=== PATIENT | male | born 1965 | race Caucasian/White ===

== ENCOUNTER 2018-01-21 16:17 | Emergency (ER) | payer OTHER ==
[2018-01-21] MEDS: IBUPROFEN 800 MG TABLET. PO (18:14)
== END 2018-01-21 18:50 | disposition home or self-care (01) ==
LOC: ER 16:17
DX: S09.90XA Unspecified injury of head, initial encounter (principal); M48.02 Spinal stenosis, cervical region; E11.9 Type 2 diabetes mellitus without complications; V43.42XA Person boarding or alighting a car injured in collision with other type car, initial encounter; Y93.89 Activity, other specified; Y99.8 Other external cause status; Y92.488 Other paved roadways as the place of occurrence of the external cause
CPT/HCPCS: 70450; 72125; 99284-25

== ENCOUNTER → 2018-07-16 | Outpatient (CLI) | payer OTHER ==
[2018-01-21 18:00] VITALS: BP 157/81
[~2018-07-16] MED LIST: ALBUTEROL SULFATE 2.5 MG/3 ML NEBU. NEB ONE
== END | disposition home or self-care (01) ==
LOC: PF 10:02
PROVIDERS: ATTEND Radiology Therapeutic Radiology
DX: J44.9 Chronic obstructive pulmonary disease, unspecified (principal)
CPT/HCPCS: 94060; 94640; J7613

== ENCOUNTER → 2020-04-22 | Outpatient (CLI) | payer OTHER ==
[2018-01-21 18:00] VITALS: BP 157/81
[~2020-04-22] MED LIST changes: -ALBUTEROL SULFATE 2.5 MG/3 ML NEBU. NEB ONE; +AMLO5TAB10 PO; +HYDR-2765 PO; +HYDR50TA6 PO; +INSU100V13 SQ; +LISI-130 PO; +LISI10TA2 PO; +METF500T16 PO
--- NOTE | 2020-04-22 11:00 | PDOC2 ---
INITIAL PAIN CONSULT DATE OF SERVICE: DOS: DATE: 04/22/20 TIME: 10:51 CHIEF COMPLAINT: Chief Complaint: Low back and right lower extremity pain HISTORY OF PRESENT ILLNESS: D5-year-old male presents history of pain low back into the right foot for about 2-1/2 years now patient reports no specific injury or accident he is aware but he was wrestling with his brother after an event and hurt his back about 2 and h yue years ago is had pain ever since on and off in intensity getting worse over the past few months patient ports also radiating into his right lower extremity but mostly feels the pain in his right medial and anterior aspect of the right foot. Patient has seen a asset management coordinator who examined his foot and by his report was told there was nothing wrong with it and that he had probably a sciatic pain involved. He does have a history of degenerative disc disease in the lumbar spine as well. Patient reports the pain is constant and aching in the low back more on the right side than the left again with pain in the right foot as well patient reports he does not awaken from sleep at night does not affect his bowel bladder control but does affect his body walk for more than 10 to 15 minutes also riding the car for more than about 30 to 40 minutes exacerbates the pain fairly significantly in the right foot and the low back itself. Patient has had no diagnostic studies at this time has had no other treatments he doing some stretching and strength exercises on his own and does workout on his own at home as well as tries to walk every day at least half a mile but is becoming more more difficult for him. He rates his disability of 0-10 10 being the worst is an 8 in all categories family home responsibilities recreation occupation social activity self-care life support activities. PAST MEDICAL HISTORY: PMH: Type 2 diabetes, COPD, cigarette smoking, hypertension, obesity PREVIOUS SURGERIES: Past Surgical Hx: ORIF right upper extremity,rt. rotator cuff repair, left rotator cuff repair ear tubes, tonsillectomy CURRENT MEDICATIONS: Current Meds: Active Scripts Medications Dose Route/Sig Max Daily Dose Days Date Category Lisinopril 40 Mg Tablet 1 Tab PO DAILY 04/22/20 Reported Levemir (Insulin Detemir) 100 Unit/1 Ml Vial 1 Unit SQ HS 04/22/20 Reported Hydrocodone-Apap 7.5-325 (Hydrocodone Bit/Acetaminophen) 1 Tab Tablet 1 Tab PO PRN Q6HRS PRN 04/22/20 Reported Hydrochlorothiazide Tablet (Hydrochlorothiazide) 50 Mg Tablet 50 Mg PO DAILY 04/22/20 Reported Amlodipine Besylate 5 Mg Tablet 5 Mg PO DAILY 04/22/20 Reported Metformin Hcl 500 Mg Tablet 500 Mg PO DAILY 04/22/20 Reported ALLERGIES; Allergies: Coded Allergies: No Known Allergies (Verified Allergy, Unknown, 07/16/18) FAMILY HISTORY: Family Hx: No major medical conditions that he lists SOCIAL HISTORY: Social Hx: Smokes about 2 packs a day or less has for 38 years does not drink alcohol does not use any illegal illicit recreational drugs 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 Extraocular movements are intact and symmetrical. Oral cavity: Mucous membranes moist and pink. Dentition is intact. NECK: Shows anterior throat supple without palpable lymphadenopathy noted. Swallow reflex symmetrical. CHEST: Shows normal on inspection. Breath sounds are clear bilaterally, distant, but no rales rhonchi or wheezes auscultated. HEART: Shows S1, S2 clear. No murmurs auscultated. ABDOMEN: Soft, nontender, nondistended, obese. No palpable organomegaly is noted. No rebound or guarding demonstrated. BACK: Shows spine grossly in the midline. Normal-appearing cervical lordotic curvature. There is slightly increased thoracic kyphosis, some minor flattening of the lumbar lordotic curvature. Lumbar paraspinous muscles show symmetrical on inspection, on palpation shows some moderate tenderness diffusely throughout the upper, middle and lower distribution of the paraspinous muscles bilaterally and also into the lower thoracic paraspinous musculature, firm and tender, but without specific trigger points, without radiation of pain. The patient has good rotational motion of the lumbar spine, both laterally as well as extension and flexion without significant difficulty. No tenderness over the spinous processes, but moderate tenderness over the right sacroiliac and posterior superior iliac spine only without radiation. EXTREMITIES: Lower extremities show deep tendon reflexes 2+ in the patellar and tendo calcaneus tendons. Motor exam is 4 on a scale of 5 with right dorsiflexion, extension, quadriceps and hamstring flexion and 5/5 on the left. Peripheral pulses are 1+ posterior tibial. No peripheral edema is noted bilaterally. Lower extremities are warm and dry to touch, equal in color and appearance. Straight leg raise noted to be positive on the right about 40 degrees, left side is []. Gaenslen's and Enrique's maneuvers are negative as well. The patient is able to stand, stand on his toes without significant difficulty or loss of balance walks with a slight favoring gait does appear to favor the right lower extremity mildly but not use any assistive device such as canes or walker to ambulate.. SKIN: Shows warm and dry, good turgor. No edema. No sores, rashes or bruising throughout. IMPRESSION: Impression: 55-year-old male with approximate 2-1/2-year history low back pain now right lower extremity pain and specifically right foot pain in a radicular fashion. Obesity Type 2 diabetes Hypertension Cigarette smoking with COPD Plan: Options were discussed with the patient including conservative medical management physical therapies interventional techniques and he like to pursue interventional techniques. We discussed a lumbar epidural straight injection using description as well as anatomical models to describe the procedure. Patient will wait for preauthorization with his insurance provider in the meantime in order MRI scan of the lumbar spine as has significant radicular pain and no diagnostic studies to confirm this also patient reports he has a history of a spinal tumor in his sister which was malignant. Once MRI scan is obtained we will review this and plan on lumbar epidural steroid ejection translaminar approach to the L5-S1 level. In the meantime patient given Medrol Dosepak with instructions and side effects be aware of discussed, and will return as scheduled SOFI KELLY MD Apr 22, 2020 11:00
== END | disposition home or self-care (01) ==
LOC: PNCL 08:58
PROVIDERS: ATTEND Anesthesiology
DX: M54.5 Low back pain (principal); M51.36 Other intervertebral disc degeneration, lumbar region; M79.661 Pain in right lower leg; I10 Essential (primary) hypertension; J44.9 Chronic obstructive pulmonary disease, unspecified; E11.9 Type 2 diabetes mellitus without complications; Z87.891 Personal history of nicotine dependence; Z79.899 Other long term (current) drug therapy
CPT/HCPCS: G0463

== ENCOUNTER → 2020-09-30 | Outpatient (CLI) | payer OTHER ==
[2018-01-21 18:00] VITALS: BP 157/81
[~2020-09-30] MED LIST changes: +AMLO-186 PO; -AMLO5TAB10 PO; +ASPI-630 PO; +CLON0.2T PO; -HYDR50TA6 PO; +HYDR50TA9 PO; +IOHEXOL 180 MG/ML 10 ML VIAL. ONE; +IRBE300T23 PO; +LISI10TA16 PO; -LISI10TA2 PO; +methylPREDNISolone ACETATE 40 MG/ML VIAL. ONE; +methylPREDNISolone ACETATE 80 MG/ML VIAL. ONE
--- NOTE | 2020-09-30 11:39 | PDOC4 ---
PROCEDURE Procedure Patient was consented for lumbar epidural steroid injection. Risks were dis cussed including but not limited to: Bleeding, infection, possibility of epidural hematoma and subsequent neurological compromise, dural puncture, headaches, spinal cord and/or nerve damage, side effects of steroid medication, and poor results regarding pain control. Patient understands and wished to proceed. Procedure is lumbar epidural steroid injection under local anesthetic using sterile prep and drape at the L5-S1 level using C-arm fluoroscopic guidance in both AP and lateral views medications injected is 120 mg Depo-Medrol + 10 mL preservative-free normal saline and 2 mL contrast- condition at discharge is stable patient tolerated procedure well had no complications. SOFI KELLY MD Sep 30, 2020 11:39
--- NOTE | 2020-09-30 11:39 | PDOC ---
Progress Note - Pain Clinic Date of Service: DOS: DATE: 09/30/20 TIME: 11:35 Diagnosis: Dx: Lumbar radiculopathy with lumbar degenerative disc disease History or Present Illness: HPI: 55-year-old male returns for follow-up status post initial evaluation and preauthorization for lumbar epidural steroid injection. Patient is obtained that now would like to proceed. Patient reports still pain the low back right lower extremity as was previously posterior gluteus posterior thigh posterior calf on the right side into the foot on the right as well patient reports is a 9 on scale 10 is worse over the past week 8 on average 7 its least and is a 7 today patient ports radiating and sharp in the back also in the right hip and lower extremity patient reports no new motor or sensory deficits no new bowel or bladder incontinence reports is still awakening from sleep occasionally but not every night patient reports no other changes. Physical Exam: VS: Blood pressure 157/91 pulse 85 respirations 18 temperature is 98.1 F weight is 277 pounds PE: PHYSICAL EXAMINATION: GENERAL: The patient is awake, alert, oriented, appropriate, very pleasant demeanor HEENT: Shows normocephalic, atraumatic. Extraocular movements are intact and symmetrical. Oral cavity: Mucous membranes moist and pink. NECK: Shows anterior throat supple without palpable lymphadenopathy noted. Swallow reflex symmetrical. CHEST: Shows normal on inspection. Breath sounds are clear bilaterally, distant but no rales or rhonchi. Deep breath elicits dry cough. HEART: Shows S1, S2 clear. No murmurs auscultated. ABDOMEN: Soft, nontender, nondistended, obese. No palpable organomegaly is noted. No rebound or guarding demonstrated. BACK: Shows spine grossly in the midline. Normal-appearing cervical lordotic curvature. There is increased thoracic kyphosis, some flattening of the lumbar lordotic curvature. Lumbar paraspinous muscles show symmetrical on inspection, on palpation shows some moderate tenderness diffusely throughout the upper, middle and lower distribution of the paraspinous muscles without specific trigger points, without radiation of pain. The patient has good rotational motion of the lumbar spine, both laterally as well as extension and flexion without significant difficulty. EXTREMITIES: Lower extremities show deep tendon reflexes 2+ in the patellar and tendo calcaneus tendons. Motor exam is 4 on a scale of 5 with right dorsiflexion, extension, quadriceps and hamstring flexion and 5/5 on the left. Peripheral pulses are 1+ posterior tibial. No peripheral edema is noted bilaterally. Lower extremities are warm and dry to touch, equal in color and appearance. SKIN: Shows warm and dry, good turgor. No edema. No sores, rashes or bruising throughout. Procedure: Procedure: Options were discussed with the patient. Patient chart reviews his current medi cation regimen updated current review of systems updated today as well. We will proceed with lumbar epidural steroid injection today with fluoroscopic guidance. Risks were discussed including but not limited to: Bleeding, infection, possibility of epidural hematoma and subsequent neurological compromise, dural puncture, headaches, spinal cord and/or nerve damage, side effects of steroid medication, and poor results regarding pain control. Patient understands and wished to proceed. Patient will return to clinic in approximate 2 weeks for follow-up, was counseled as to return appointment activity level and side effects to be aware of. Medication Injected: Med Injected: Procedure is lumbar epidural steroid injection under local anesthetic using sterile prep and drape at the L5-S1 level using C-arm fluoroscopic guidance in both AP and lateral views medications injected is 120 mg Depo-Medrol + 10 mL preservative-free normal saline and 2 mL contrast- condition at discharge is st able patient tolerated procedure well had no complications. Condition at Discharge: Condition at Discharge: Condition discharge stable, patient alert procedure well, and had no complications. SOFI KELLY MD Sep 30, 2020 11:39
== END | disposition home or self-care (01) ==
LOC: PNCL 10:42
PROVIDERS: ATTEND Anesthesiology
DX: M51.16 Intervertebral disc disorders with radiculopathy, lumbar region (principal); F17.210 Nicotine dependence, cigarettes, uncomplicated; Z79.82 Long term (current) use of aspirin; Z79.84 Long term (current) use of oral hypoglycemic drugs; Z79.899 Other long term (current) drug therapy; Z72.89 Other problems related to lifestyle
CPT/HCPCS: 62323; J1030; J1040; Q9965

== ENCOUNTER → 2020-10-14 | Outpatient (CLI) | payer OTHER ==
[2018-01-21 18:00] VITALS: BP 157/81
[~2020-10-14] MED LIST changes: -IOHEXOL 180 MG/ML 10 ML VIAL. ONE; -methylPREDNISolone ACETATE 40 MG/ML VIAL. ONE; -methylPREDNISolone ACETATE 80 MG/ML VIAL. ONE
--- NOTE | 2020-10-14 11:19 | PDOC ---
Progress Note - Pain Clinic Date of Service: DOS: DATE: 10/14/20 TIME: 11:15 Diagnosis: Dx: Lumbar radiculopathy with lumbar degenerative disc disease History or Present Illness: HPI: 55-year-old male returns follow-up status post lumbar epidural to injection x1. Patient reports about 50% improvement after the first week or so after the injection the pain significantly reduced by about 75 to 80% for the first 3 days and pain returning in the low back and the right lower extremity. Patient reports in the right hip posterior gluteus posterior lateral thigh lateral anterior thigh and on the top of the foot with a stabbing pain on the top of the right foot over the past few days. Patient reports no new motor or sensory deficits no new bowel or bladder incontinence describes pain as aching and sharp in the low back and the right leg as noted worse with walking and standing better with sitting or laying down still wakes him from sleep occasionally but not every night patient reports initially he was doing better with working ac tivities household activities but after about 3 days of working again the pain returned. Patient rates his pain is a 9 on scale 10 is worse with past week 8 on average 8 its least is an 8 today. Patient reports no new motor or sensory deficits, no new bowel or bladder incontinence, or other complaints. Physical Exam: VS: Blood pressure is 140/97 ;pulse 81; respirations 20; temperature is 90.4 F; height is 5 feet 8 inches; weight is 277 pounds PE: PHYSICAL EXAMINATION: GENERAL: The patient is awake, alert, oriented, appropriate, very pleasant demeanor HEENT: Shows normocephalic, atraumatic. Extraocular movements are intact and symmetrical. NECK: Shows anterior throat supple without palpable lymphadenopathy noted. Swallow reflex symmetrical. CHEST: Shows normal on inspection. Breath sounds are clear bilaterally, no rales or rhonchi auscultated bilaterally. HEART: Shows S1, S2 clear and regular. No murmurs auscultated. ABDOMEN: Soft, nontender, nondistended, obese. No palpable organomegaly is noted. No rebound or guarding demonstrated. BACK: Shows spine grossly in the midline. Normal-appearing cervical lordotic curvature. There is slightly increased thoracic kyphosis, some flattening of the lumbar lordotic curvature. Lumbar paraspinous muscles show symmetrical on inspection, on palpation shows some moderate tenderness diffusely throughout the upper, middle and lower distribution of the paraspinous muscles without specific trigger points, without radiation of pain. The patient has good rotational motion of the lumbar spine, both laterally as well as extension and flexion without significant difficulty. EXTREMITIES: Lower extremities show deep tendon reflexes 2+ in the patellar and tendo calcaneus tendons. Motor exam is 4 on a scale of 5 with right dorsiflexion, extension, quadriceps and hamstring flexion and 5/5 on the left. Peripheral pulses are 1+ posterior tibial. No peripheral edema is noted bilaterally. Lower extremities are warm and dry to touch, equal in color and appearance. SKIN: Shows warm and dry, good turgor. No edema. No sores, rashes or bruising throughout. Procedure: Procedure: Options were discussed with the patient. Patient chart reviews his current medication regimen updated current review of systems updated today as well. Patient has significant [id number] expense with his insurance program and would like to wait for another week or 2 prior to undergoing another injection. Patient will be given Medrol Dosepak in the meantime patient is given instructions well side effects beware with the medication, and will follow up in approximately 2 weeks as scheduled. In the meantime patient will continue with stretching strength exercises as well as [id number] analgesics and hydrocodone as currently. Medication Injected: Med Injected: None Condition at Discharge: Condition at Discharge: Condition at discharge is stable. SOFI KELLY MD Oct 14, 2020 11:19
== END | disposition home or self-care (01) ==
LOC: PNCL 10:38
PROVIDERS: ATTEND Anesthesiology
DX: M51.16 Intervertebral disc disorders with radiculopathy, lumbar region (principal); F17.210 Nicotine dependence, cigarettes, uncomplicated; Z79.82 Long term (current) use of aspirin; Z79.84 Long term (current) use of oral hypoglycemic drugs; Z79.899 Other long term (current) drug therapy; Z72.89 Other problems related to lifestyle
CPT/HCPCS: 99212; G0463

== ENCOUNTER → 2020-11-11 | Outpatient (CLI) | payer OTHER ==
[2018-01-21 18:00] VITALS: BP 157/81
[~2020-11-11] MED LIST changes: +IOHEXOL 180 MG/ML 10 ML VIAL. ONE; +methylPREDNISolone ACETATE 40 MG/ML VIAL. ONE; +methylPREDNISolone ACETATE 80 MG/ML VIAL. ONE
--- NOTE | 2020-11-11 12:14 | PDOC ---
Progress Note - Pain Clinic Date of Service: DOS: DATE: 11/11/20 TIME: 12:10 Diagnosis: Dx: Lumbar radiculopathy with lumbar degenerative disc disease History or Present Illness: HPI: 55-year-old male returns follow-up status post lumbar epidurals injection x1. September 30, 2020. Patient reports he did about 50% improvement after the last injection which is now improved to about 75% improvement patient reports he took about 3 to 4 days to get that level after the injection but is now about 75% improved and is still improved patient reports that his low back and right lower extremity greater than the left. Patient reports it is constant severe at times aching and sharp in the low back and the right lower extremity posterior gluteus posterior thigh posterior calf but more in the hip and the right side patient reports is a 9 on scale 10 is worse over the past week 9 on average 6 its least and is a 9 today patient reports no new motor or sensory deficits no new bowel or bladder incontinence or other complaints he is initially walking better doing activities at home as well as at work with greater ease and comfort and walking steps feels much better as well. Patient reports still waking from sleep occasionally about every 5 hours every night. Physical Exam: VS: Pressure is 147/92 pulse 81 respirations 20 temperature is 98.4 F weight is 270 pounds PE: PHYSICAL EXAMINATION: GENERAL: The patient is awake, alert, oriented, appropriate, very pleasant demeanor HEENT: Shows normocephalic, atraumatic. Extraocular movements are intact and symmetrical. NECK: Shows anterior throat supple without palpable lymphadenopathy noted. Swallow reflex symmetrical. CHEST: Shows normal on inspection. Breath sounds are clear bilaterally, distant but no rales or rhonchi or wheezes. HEART: Shows S1, S2 clear. No murmurs auscultated. ABDOMEN: Soft, nontender, nondistended obese. No palpable organomegaly is noted. No rebound or guarding demonstrated. BACK: Shows spine grossly in the midline. Normal-appearing cervical lordotic curvature. There is slightly increased thoracic kyphosis, some minor flattening of the lumbar lordotic curvature. Lumbar paraspinous muscles show symmetrical on inspection, on palpation shows some moderate tenderness diffusely throughout the upper, middle and lower distribution of the paraspinous muscles without specific trigger points, without radiation of pain. The patient has good rotational motion of the lumbar spine, both laterally as well as extension and flexion without significant difficulty. No tenderness over the spinous processes, sacrum or sacroiliac regions. EXTREMITIES: Lower extremities show deep tendon reflexes 2+ in the patellar and tendo calcaneus tendons. Motor exam is 4 on a scale of 5 with right d orsiflexion, extension, quadriceps and hamstring flexion and 5/5 on the left. Peripheral pulses are 1+ posterior tibial. No peripheral edema is noted bilaterally. Lower extremities are warm and dry to touch, equal in color and appearance. SKIN: Shows warm and dry, good turgor. No edema. No sores, rashes or bruising throughout. Procedure: Procedure: Options were discussed with the patient. Patient chart reviewed his current medication regimen updated current review of systems updated today as well. We will proceed with a second in the series lumbar epidural steroid action stable fluoroscopic guidance. Risks were discussed including but not limited to: Bleeding, infection, possibility of epidural hematoma and subsequent neurological compromise, dural puncture, headaches, spinal cord and/or nerve damage, side effects of steroid medication, and poor results regarding pain control. Patient understands and wished to proceed. Patient will return to the clinic approximate 2 weeks for follow-up, was counseled as return appointment, activity level, and side effects beware of. Medication Injected: Med Injected: Procedure is lumbar epidural steroid injection under local anesthetic using sterile prep and drape at the L5-S1 level using C-arm fluoroscopic guidance in both AP and lateral views medications injected is 120 mg Depo-Medrol + 10 mL preservative-free normal saline and 2 mL contrast- condition at discharge is stable patient tolerated procedure well had no complications. Condition at Discharge: Condition at Discharge: Condition at discharge stable, patient already procedure well and had no complications. SOFI KELLY MD Nov 11, 2020 12:14
--- NOTE | 2020-11-11 12:15 | PDOC4 ---
PROCEDURE Procedure Patient was consented for lumbar epidural steroid injection. Risks were dis cussed including but not limited to: Bleeding, infection, possibility of epidural hematoma and subsequent neurological compromise, dural puncture, headaches, spinal cord and/or nerve damage, side effects of steroid medication, and poor results regarding pain control. Patient understands and wished to proceed. Procedure is lumbar epidural steroid injection under local anesthetic using sterile prep and drape at the L5-S1 level using C-arm fluoroscopic guidance in both AP and lateral views medications injected is 120 mg Depo-Medrol + 10 mL preservative-free normal saline and 2 mL contrast- condition at discharge is stable patient tolerated procedure well had no complications. SOFI KELLY MD Nov 11, 2020 12:15
== END | disposition home or self-care (01) ==
LOC: PNCL 10:39
PROVIDERS: ATTEND Anesthesiology
DX: M51.16 Intervertebral disc disorders with radiculopathy, lumbar region (principal); F17.210 Nicotine dependence, cigarettes, uncomplicated; Z79.82 Long term (current) use of aspirin; Z79.84 Long term (current) use of oral hypoglycemic drugs; Z79.899 Other long term (current) drug therapy; Z98.890 Other specified postprocedural states; Z72.89 Other problems related to lifestyle
CPT/HCPCS: 62323; J1030; J1040; Q9965; 77002

== ENCOUNTER → 2020-12-02 | Outpatient (CLI) | payer OTHER ==
[2018-01-21 18:00] VITALS: BP 157/81
[~2020-12-02] MED LIST changes: -IOHEXOL 180 MG/ML 10 ML VIAL. ONE; -methylPREDNISolone ACETATE 40 MG/ML VIAL. ONE; -methylPREDNISolone ACETATE 80 MG/ML VIAL. ONE
--- NOTE | 2020-12-02 13:00 | PDOC ---
Progress Note - Pain Clinic Date of Service: DOS: DATE: 12/02/20 TIME: 12:57 Diagnosis: Dx: Lumbar radiculopathy with lumbar degenerative disc disease History or Present Illness: HPI: 55-year-old male returns for follow-up status post lumbar epidural steroid injections x2. Patient reports about 80% improvement after the last injection for the about 3 weeks following, the pain is returning now however in the low back the right lower extremity posterior gluteus posterior thigh posterior calf as well across the low back itself patient reports is an 8 on scale 10 is worse over the past week 8 on average 5 its least and is an 8 today. Patient reports aching and sharp constant initially he was doing much better with distance walking doing household activities work activities travel with greater ease and comfort still wakes him from sleep at night but the first few weeks it did not. Patient reports he was able to dance with his granddaughter was very happy with his level of decreased pain after his last injection. Patient reports no new motor or sensory deficits no new bowel or bladder incontinence or other complaints. Patient continues to do stretching and strengthening exercises daily and is taking anti-inflammatories [id number]. Physical Exam: VS: Blood pressure is 136/85 pulse 87 respirations are 18 temperature 98.7 F height is 5 feet 8 inches weight is 270 PE: PHYSICAL EXAMINATION: GENERAL: The patient is awake, alert, oriented, appropriate, very pleasant demea nor HEENT: Shows normocephalic, atraumatic. Extraocular movements are intact and symmetrical. Oral cavity: Mucous membranes moist and pink. Dentition is intact. NECK: Shows anterior throat supple without palpable lymphadenopathy noted. Swallow reflex symmetrical. CHEST: Shows normal on inspection. Breath sounds are clear bilaterally. HEART: Shows S1, S2 clear. No murmurs auscultated. ABDOMEN: Soft, nontender, nondistended, obese. No palpable organomegaly is noted. No rebound or guarding demonstrated. BACK: Shows spine grossly in the midline. Normal-appearing cervical lordotic curvature. There is slightly increased thoracic kyphosis, some minor flattening of the lumbar lordotic curvature. Lumbar paraspinous muscles show symmetrical on inspection, on palpation shows some moderate tenderness diffusely throughout the upper, middle and lower distribution of the paraspinous muscles, but without specific trigger points, without radiation of pain. The patient has good rotational motion of the lumbar spine, both laterally as well as extension and flexion without significant difficulty. EXTREMITIES: Lower extremities show deep tendon reflexes 2+ in the patellar and tendo calcaneus tendons. Motor exam is 4 on a scale of 5 with right dorsiflexion, extension, quadriceps and hamstring flexion and 5/5 on the left. Peripheral pulses are 1+ posterior tibial. No peripheral edema is noted bilaterally. Lower extremities are warm and dry. SKIN: Shows warm and dry, good turgor. No edema. No sores, rashes or bruising throughout. Procedure: Procedure: Options were discussed with the patient. Patient chart reviews his current medication regimen updated current review of systems updated today as well. We will preauthorize patient for a third lumbar epidural steroid injection with fluoroscopic guidance at the L5-S1 level and a translaminar approach. Patient will continue with stretching strength exercises and oral anti-inflammatories as currently. Medication Injected: Med Injected: None Condition at Discharge: Condition at Discharge: Condition at discharge is stable. SOFI KELLY MD Dec 02, 2020 13:00
== END | disposition home or self-care (01) ==
LOC: PNCL 11:59
PROVIDERS: ATTEND Anesthesiology
DX: M51.16 Intervertebral disc disorders with radiculopathy, lumbar region (principal); F17.210 Nicotine dependence, cigarettes, uncomplicated; Z79.82 Long term (current) use of aspirin; Z79.4 Long term (current) use of insulin; Z79.899 Other long term (current) drug therapy; Z72.89 Other problems related to lifestyle
CPT/HCPCS: 99212; G0463

== ENCOUNTER → 2020-12-16 | Outpatient (CLI) | payer OTHER ==
[2018-01-21 18:00] VITALS: BP 157/81
[~2020-12-16] MED LIST changes: +IOHEXOL 180 MG/ML 10 ML VIAL. ONE; +methylPREDNISolone ACETATE 40 MG/ML VIAL. ONE; +methylPREDNISolone ACETATE 80 MG/ML VIAL. ONE
--- NOTE | 2020-12-16 10:35 | PDOC ---
Progress Note - Pain Clinic Date of Service: DOS: DATE: 12/16/20 TIME: 10:33 Diagnosis: Dx: Lumbar radiculopathy with lumbar degenerative disc disease History or Present Illness: HPI: 55-year-old male returns to follow-up status post lumbar epidural steroid injections x2. Patient had approximately 80% improvement after his last injection for few weeks following pain returning in the low back and the right lower extremity as it was previously posterior gluteus posterior thigh posterior calf some in the lateral thigh as well patient reports is worse with walking standing changing positions better with sitting or laying down usually on his back patient reports still it wakes about every 4 hours from sleep. Patient reports pain is a 9 on a scale of 10 at its worst average and a 7 at its least is an 8 today patient reports is aching in the low back and the right lower extremity as described. Patient reports no new motor or sensory deficits no new bowel or bladder incontinence. Physical Exam: VS: Blood pressure is 139/85 pulse 69 respirations 18 temperature 98.4 F weight is 275 pounds PE: PHYSICAL EXAMINATION: GENERAL: The patient is awake, alert, oriented, appropriate, very pleasant demeanor HEENT: Shows normocephalic, atraumatic. Extraocular movements are intact and symmetrical. Oral cavity: Mucous membranes moist and pink. Dentition is intac t. NECK: Shows anterior throat supple without palpable lymphadenopathy noted. Swallow reflex symmetrical. CHEST: Shows normal on inspection. Breath sounds are clear bilaterally, distant but without rales rhonchi or wheezes. HEART: Shows S1, S2 clear. No murmurs auscultated. ABDOMEN: Soft, nontender, nondistended, obese. No palpable organomegaly is noted. No rebound or guarding demonstrated. BACK: Shows spine grossly in the midline. Normal-appearing cervical lordotic curvature. There is increased thoracic kyphosis, some flattening of the lumbar lordotic curvature. Lumbar paraspinous muscles show symmetrical on inspection, on palpation shows some moderate tenderness diffusely throughout the upper, middle and lower distribution of the paraspinous muscles, but without specific trigger points, without radiation of pain. The patient has good rotational motion of the lumbar spine, both laterally as well as extension and flexion without significant difficulty. EXTREMITIES: Lower extremities show deep tendon reflexes 2+ in the patellar and tendo calcaneus tendons. Motor exam is 4 on a scale of 5 with right dorsiflexion, extension, quadriceps and hamstring flexion and 5/5 on the left. Peripheral pulses are 1+ posterior tibial. No peripheral edema is noted b ilaterally. Lower extremities are warm and dry. SKIN: Shows warm and dry, good turgor. No edema. No sores, rashes or bruising throughout. Procedure: Procedure: Options discussed with patient. Patient chart reviews his current medication regimen updated current review of systems updated today as well. We will proceed with a third in the series lumbar epidural steroid injection stable fluoroscopic guidance. Risks were discussed including but not limited to: Bleeding, infection, possibility of epidural hematoma and subsequent neurological compromise, dural puncture, headaches, spinal cord and/or nerve damage, side effects of steroid medication, and poor results regarding pain control. Patient understands and wished to proceed. Patient return to clinic in approximate 2 weeks for follow-up, was counseled as return appointment activity level and side effects to be aware of. Medication Injected: Med Injected: Procedure is lumbar epidural steroid injection under local anesthetic using sterile prep and drape at the L5-S1 level using C-arm fluoroscopic guidance in both AP and lateral views medications injected is 120 mg Depo-Medrol + 10 mL preservative-free normal saline and 2 mL contrast- condition at discharge is stable patient tolerated procedure well had no complications. Condition at Discharge: Condition at Discharge: Condition at discharge stable, patient tolerated procedure well and had no complications. SOFI KELLY MD Dec 16, 2020 10:35
--- NOTE | 2020-12-16 10:36 | PDOC4 ---
PROCEDURE Procedure Patient was consented for lumbar epidural steroid injection. Risks were dis cussed including but not limited to: Bleeding, infection, possibility of epidural hematoma and subsequent neurological compromise, dural puncture, headaches, spinal cord and/or nerve damage, side effects of steroid medication, and poor results regarding pain control. Patient understands and wished to proceed. Procedure is lumbar epidural steroid injection under local anesthetic using sterile prep and drape at the L5-S1 level using C-arm fluoroscopic guidance in both AP and lateral views medications injected is 120 mg Depo-Medrol + 10 mL preservative-free normal saline and 2 mL contrast- condition at discharge is stable patient tolerated procedure well had no complications. SOFI KELLY MD Dec 16, 2020 10:36
== END | disposition home or self-care (01) ==
LOC: PNCL 09:46
PROVIDERS: ATTEND Anesthesiology
DX: M51.16 Intervertebral disc disorders with radiculopathy, lumbar region (principal); F17.210 Nicotine dependence, cigarettes, uncomplicated; Z79.82 Long term (current) use of aspirin; Z79.899 Other long term (current) drug therapy; Z98.890 Other specified postprocedural states; Z79.4 Long term (current) use of insulin; Z72.89 Other problems related to lifestyle
CPT/HCPCS: 62323; J1030; J1040; Q9965

== ENCOUNTER → 2021-01-20 | Outpatient (CLI) | payer OTHER ==
[2018-01-21 18:00] VITALS: BP 157/81
[~2021-01-20] MED LIST changes: -IOHEXOL 180 MG/ML 10 ML VIAL. ONE; -methylPREDNISolone ACETATE 40 MG/ML VIAL. ONE; -methylPREDNISolone ACETATE 80 MG/ML VIAL. ONE
--- NOTE | 2021-01-20 12:13 | PDOC ---
Progress Note - Pain Clinic Date of Service: DOS: DATE: 01/20/21 TIME: 12:09 Diagnosis: Dx: Lumbar degenerative disc disease with lumbar and lumbosacral spondylosis History or Present Illness: HPI: 56-year-old male returns for follow-up status post lumbar epidural steroid injection x3 most recently December 16, 2020. Patient reports about 50% improvement but his pain is now no longer radiating to the lower extremities and is just localized in the low back right greater than left and present bilaterally. Patient reports is worse with standing walking standing and prolonged positions bending stooping twisting especially with extension of the lumbar spine and is most noticeable patient reports is aching and sharp constant in the low back again worse on the right than the left but not radiating to the lower extremities patient reports is a 9 on scale 10 is worse over the past week 7 on average 5 its least is a 7 today. Patient reports no new motor or sensory deficits why does feel that the last injections were helpful as the pain was returning after about 1 to 2 weeks. Patient reports no new motor or sensory deficits no bowel or bladder incontinence, or other complaints. Physical Exam: VS: Blood pressure is 151/88 pulse 75 respirations 18 temperature 98.6 F height is 5 feet 8 inches weight is 265 pounds PE: PHYSICAL EXAMINATION: GENERAL: The patient is awake, alert, oriented, appropriate, very pleasant demeanor HEENT: Shows normocephalic, atraumatic. Extraocular movements are intact and symmetrical. Oral cavity: Mucous membranes moist and pink. Dentition is intact, but in poor condition. NECK: Shows anterior throat supple without palpable lymphadenopathy noted. Swallow reflex symmetrical. CHEST: Shows normal on inspection. Breath sounds are clear bilaterally, distant but no rales or rhonchi or wheezes. HEART: Shows S1, S2 clear. No murmurs auscultated. ABDOMEN: Soft, nontender, nondistended, obese. No palpable organomegaly is noted. BACK: Shows spine grossly in the midline. Normal-appearing cervical lordotic curvature. There is slightly increased thoracic kyphosis, some minor flattening of the lumbar lordotic curvature. Lumbar paraspinous muscles show symmetrical on inspection, on palpation shows some moderate tenderness diffusely throughout the upper, middle and lower distribution of the paraspinous muscles without specific trigger points, without radiation of pain. The patient has good rotational motion of the lumbar spine, both laterally as well as extension and flexion with 6/10 of pain with extension and axial loading lumbar spine at 10 degrees better with forward flexion at 45 degrees right and left lateral rotation 10 degrees shows moderate tenderness more on the right than the left but without radiation to the lower extremities bilaterally.. No tenderness over the spinous processes, sacrum or sacroiliac regions. EXTREMITIES: Lower extremities show deep tendon reflexes 2+ in the patellar and tendo calcaneus tendons. Motor exam is 4 on a scale of 5 with right dorsiflexion, extension, quadriceps and hamstring flexion and 5/5 on the left. Peripheral pulses are 1+ posterior tibial. No peripheral edema is noted bilaterally. Lower extremities are warm and dry. SKIN: Shows warm and dry, good turgor. No edema. No sores, rashes or bruising throughout. Procedure: Procedure: Options were discussed with the patient. Patient's old chart was reviewed his current medication regimen updated current review of systems updated today as well. We will preauthorize patient for bilateral L4-5 and L5-S1 facet medial branch blocks. Patient has significant axial back pain without radiation to the lower extremities at this time right greater than left. Once preauthorized patient will return to clinic will plan on bilateral L4-5 and L5-S1 medial branch facet blocks with fluoroscopic guidance. Medication Injected: Med Injected: None Condition at Discharge: Condition at Discharge: Condition at discharge is stable. SOFI KELLY MD Jan 20, 2021 12:13
== END | disposition home or self-care (01) ==
LOC: PNCL 11:08
PROVIDERS: ATTEND Anesthesiology
DX: M51.36 Other intervertebral disc degeneration, lumbar region (principal); M47.817 Spondylosis without myelopathy or radiculopathy, lumbosacral region; F17.210 Nicotine dependence, cigarettes, uncomplicated; Z79.82 Long term (current) use of aspirin; Z79.899 Other long term (current) drug therapy; Z79.4 Long term (current) use of insulin
CPT/HCPCS: 99212; G0463

== ENCOUNTER → 2021-02-03 | Outpatient (CLI) | payer OTHER ==
[2018-01-21 18:00] VITALS: BP 157/81
--- NOTE | 2021-02-03 11:28 | PDOC ---
Progress Note - Pain Clinic Date of Service: DOS: DATE: 02/03/21 TIME: 11:23 Diagnosis: Dx: Lumbar degenerative disease lumbar and lumbosacral spondylosis History or Present Illness: HPI: 56-year-old male returns for follow-up after lumbar epidural steroid injections with good resolution of the pain in his lower extremities but still significant pain in the low back itself especially with twisting bending stooping and lifting patient reports it is unchanged worse on the right side than the left but present bilaterally. Patient reports an 8 on scale 10 at all times worst least and average is 8 today patient reports is aching and sharp burning and c onstant with standing and sitting for longer than 10 to 15 minutes. Patient reports it is awakening from sleep fairly frequently worse with bending worse with work activities where he is required to be on his feet most of his working day. Patient reports no new motor or sensory deficits no bowel or bladder incontinence. Patient's legs are doing much better his back still significantly painful with activity. Patient reports no radiation of pain to the lower extremities at this time and it seems to have cleared up significantly after his last injection. Physical Exam: VS: Blood pressure is 140/83 pulse 85 respirations 20 temperature 98.1 F 5 feet 8 inches weight is 258 pounds PE: PHYSICAL EXAMINATION: GENERAL: The patient is awake, alert, oriented, appropriate, very pleasant in demeanor. HEENT: Shows normocephalic, atraumatic. Extraocular movements are intact and symmetrical. NECK: Shows anterior throat supple without palpable lymphadenopathy noted. Swallow reflex symmetrical. CHEST: Shows normal on inspection. ABDOMEN: Soft, nontender, nondistended, obese. BACK: Shows spine grossly in the midline. Normal-appearing cervical lordotic curvature. There is slightly increased thoracic kyphosis, some minor flattening of the lumbar lordotic curvature. Lumbar paraspinous muscles show symmetrical on inspection, on palpation shows some moderate tenderness diffusely throughout the upper, middle and lower distribution of the paraspinous muscles without s pecific trigger points, without radiation of pain. The patient has good rotational motion of the lumbar spine, both laterally as well as extension and flexion with significant pain with right and left lateral rotation greater than 10 degrees right greater than left, as well as much more significant pain with posterior extension and axial loading of the lumbar spine, better with forward flexion at 45 degrees. No tenderness over the spinous processes, sacrum or sacroiliac regions. EXTREMITIES: Lower extremities show deep tendon reflexes 2+ in the patellar and tendo calcaneus tendons. Motor exam is full on a scale of 5 with right do rsiflexion, extension, quadriceps and hamstring flexion and 5/5 on the left. Peripheral pulses are 1+ posterior tibial. No peripheral edema is noted bilaterally. Lower extremities are warm and dry. SKIN: Shows warm and dry, good turgor. No edema. No sores, rashes or bruising throughout. Procedure: Procedure: Options discussed with the patient. Patient chart reviewed his current medication regimen updated current review of systems updated today as well. We will preauthorize patient for bilateral L4-5, and L5-S1 facet medial branch blocks as his pain in the lower extremities has resolved, he no longer has radiating pain into the lower extremities and his pain is axial in component with facetogenic characteristics. Medication Injected: Med Injected: None Condition at Discharge: Condition at Discharge: Condition at discharge is stable. SOFI KELLY MD Feb 03, 2021 11:28
== END | disposition home or self-care (01) ==
LOC: PNCL 10:50
PROVIDERS: ATTEND Anesthesiology
DX: M51.36 Other intervertebral disc degeneration, lumbar region (principal); M47.817 Spondylosis without myelopathy or radiculopathy, lumbosacral region; F17.210 Nicotine dependence, cigarettes, uncomplicated; Z79.82 Long term (current) use of aspirin; Z79.899 Other long term (current) drug therapy; Z72.89 Other problems related to lifestyle
CPT/HCPCS: 99212; G0463

== ENCOUNTER → 2021-03-10 | Outpatient (CLI) | payer OTHER ==
[2018-01-21 18:00] VITALS: BP 157/81
[~2021-03-10] MED LIST changes: +BUPIVACAINE MPF 0.25% 10 ML VIAL. ONE; +IOHEXOL 180 MG/ML 10 ML VIAL. ONE; +methylPREDNISolone ACETATE 40 MG/ML VIAL. ONE; +methylPREDNISolone ACETATE 80 MG/ML VIAL. ONE
--- NOTE | 2021-03-10 10:46 | PDOC ---
Progress Note - Pain Clinic Date of Service: DOS: DATE: 03/10/21 TIME: 10:42 Diagnosis: Dx: Lumbar degenerative disease lumbar and lumbosacral spondylosis History or Present Illness: HPI: 56-year-old male returns for follow-up status post lumbar epidural steroid injections and we had preauthorize for lumbar facet medial branch blocks as patient's pain has changed reports no longer radiating lower extremities but is mainly focused just in the low back right greater than left. Patient reports pain is still significant in the low back more on the right but present bilaterally depending on his activity worse with standing and sitting for prolonged periods and walking patient reports is a 9 on scale 10 is worse over the past week 9 on average 7 his least is a 7 today patient with burning aching constant sharp and stabbing sometimes dull and aching as well patient reports it wakes him from sleep least 2-3 times a night since versus bending flexing standing changing positions patient getting up from a seated position sitting for prolonged periods more than 20 to 30 minutes. Patient reports no motor or sensory deficits no bowel or bladder incontinence. Physical Exam: VS: Blood pressure is 149/80 pulse 66 respirations 18 temperature 90.4 F height is 5 feet 8 inches weight is 255 pounds PE: PHYSICAL EXAMINATION: GENERAL: The patient is awake, alert, oriented, appropriate, very pleasant in demeanor HEENT: Shows normocephalic, atraumatic. Extraocular movements are intact and symmetrical. Oral cavity: Mucous membranes moist and pink. Dentition is intact. NECK: Shows anterior throat supple without palpable lymphadenopathy noted. CHEST: Shows normal on inspection. Breath sounds are clear bilaterally, no rales rhonchi or wheezes auscultated. HEART: Shows S1, S2 clear. No murmurs auscultated. ABDOMEN: Soft, nontender, nondistended, obese. BACK: Shows spine grossly in the midline. Normal-appearing cervical lordotic curvature. There is slightly increased thoracic kyphosis, some minor flattening of the lumbar lordotic curvature. Lumbar paraspinous muscles show symmetrical on inspection, on palpation shows some moderate tenderness diffusely throughout the upper, middle and lower distribution of the paraspinous muscles, but without specific trigger points, without radiation of pain. The patient has good rotational motion of the lumbar spine, both laterally as well as extension and flexion with significant tenderness especially with rotation to the right greater than 10 degrees as well as moderate tenderness with left rotation greater than 10 degrees extension greater than 10 degrees shows significant pain in the low back itself both right and left is decreased with forward flexion 45 degrees. EXTREMITIES: Lower extremities show deep tendon reflexes 2+ in the patellar and tendo calcaneus tendons. Motor exam is 4 on a scale of 5 with right dorsiflexion, extension, quadriceps and hamstring flexion and 5/5 on the left. Peripheral pulses are 1+ posterior tibial. No peripheral edema is noted bilaterally. Lower extremities are warm and dry. SKIN: Shows warm and dry, good turgor. No edema. No sores, rashes or bruising throughout. Procedure: Procedure: Options were discussed with the patient. Patient's old chart was reviewed as was his current medication regimen and review of systems updated today as well. We will proceed with bilateral L4-5 and L5-S1 facet medial branch blocks today with fluoroscopic guidance. Risks were discussed including but not limited to: Bleeding, infection, possibility of epidural hematoma and subsequent neurological compromise, dural puncture, headaches, spinal cord and/or nerve damage, side effects of steroid medication, and poor results regarding pain control. Patient understands and wished to proceed. She will return to the clinic in approximate 2 weeks for follow-up, was counseled as to return appoi ntment activity level and side effects to be aware of. Medication Injected: Med Injected: Under sterile prep and drape using C-arm fluoroscopic guidance AP and lateral and oblique views, bilateral L4-5 and L5-S1 facet joint MB's injections were performed, using quinke needles with stylette's x4,, medications injected: 120 mg Depo-Medrol +4 cc 0.25% bupivacaine +2 cc contrast. Condition at discharge stable patient tolerated the procedure well and no complications. Condition at Discharge: Condition at Discharge: Condition at discharge stable, patient already procedure well and had no complications. SOFI KELLY MD Mar 10, 2021 10:46
--- NOTE | 2021-03-10 10:47 | PDOC4 ---
Procedure Note: Procedure Note: Patient is consented for bilateral lumbar facet medial branch blocks with fluoroscopic guidance. Risks were discussed including but not limited to: Bleeding, infection, possibility of epidural hematoma and subsequent neurological compromise, dural puncture, headaches, spinal cord and/or nerve damage, side effects of steroid medication, and poor results regarding pain control. Patient understands and wished to proceed. Under sterile prep and drape using C-arm fluoroscopic guidance AP and lateral and oblique views, bilateral L4-5 and L5-S1 facet joint MB's injections were performed, using quinke needles with stylette's x4,, medications injected: 120 mg Depo-Medrol +4 cc 0.25% bupivacaine +2 cc contrast. Condition at discharge stable patient tolerated the procedure well and no complications. SOFI KELLY MD Mar 10, 2021 10:47
== END | disposition home or self-care (01) ==
LOC: PNCL 09:37
PROVIDERS: ATTEND Anesthesiology
DX: M51.36 Other intervertebral disc degeneration, lumbar region (principal); M47.817 Spondylosis without myelopathy or radiculopathy, lumbosacral region; F17.210 Nicotine dependence, cigarettes, uncomplicated; Z79.82 Long term (current) use of aspirin; Z79.4 Long term (current) use of insulin; Z79.899 Other long term (current) drug therapy; Z98.890 Other specified postprocedural states
CPT/HCPCS: 64493; 64494; J1030; J1040; J3490; Q9965

== ENCOUNTER → 2021-03-24 | Outpatient (CLI) | payer OTHER ==
[2018-01-21 18:00] VITALS: BP 157/81
[~2021-03-24] MED LIST changes: -BUPIVACAINE MPF 0.25% 10 ML VIAL. ONE; -IOHEXOL 180 MG/ML 10 ML VIAL. ONE; +OXYC-314 PO; -methylPREDNISolone ACETATE 40 MG/ML VIAL. ONE; -methylPREDNISolone ACETATE 80 MG/ML VIAL. ONE
--- NOTE | 2021-03-24 12:50 | PDOC ---
Progress Note - Pain Clinic Date of Service: DOS: DATE: 03/24/21 TIME: 12:44 Diagnosis: Dx: Lumbar and lumbosacral spondylosis Lumbar degenerative disc disease with lumbar radiculopathy History or Present Illness: HPI: 56-year-old male returns for follow-up status post bilateral L4-5 and L5-S1 medial branch facet blocks March 10, 2021. Patient reports 100% improvement on the left side right side still with about 75% improvement overall but still helping patient reports she has been increase his activity greater ease and com fort walking standing sitting getting in and out of vehicles with much easier ability patient rates his pain at 9 on scale 10 is worse over the past week 8 on average 6 its least is a 6 today patient ports aching sharp dull and tight only on the right side now which is a new finding from previous exam where it was bilaterally. Patient reports still doing better but still some significant pain to return over the past several days right side much more noticeable with walking extension of the lumbar spine with axial loading, as well as standing for prolonged sitting for prolonged periods Physical Exam: VS: Blood pressure is 154/82 pulse 84 respirations 18 temperature 98.1 F height is 5 foot 9 inches weight is 250 pounds PE: PHYSICAL EXAMINATION: GENERAL: The patient is awake, alert, oriented, appropriate, very pleasant in demeanor HEENT: Shows normocephalic, atraumatic. Extraocular movements are intact and symmetrical. Oral cavity: Mucous membranes moist and pink. Dentition is intact. NECK: Shows anterior throat supple without palpable lymphadenopathy noted. Swallow reflex symmetrical. CHEST: Shows normal on inspection. Breath sounds are clear bilaterally, distant but no rales or rhonchi. HEART: Shows S1, S2 clear. No murmurs auscultated. ABDOMEN: Soft, nontender, nondistended, obese. No palpable organomegaly is noted. BACK: Shows spine grossly in the midline. Normal-appearing cervical lordotic curvature. There is slightly increased thoracic kyphosis, some minor flattening of the lumbar lordotic curvature. Lumbar paraspinous muscles show symmetrical on inspection, on palpation shows some moderate tenderness diffusely throughout the upper, middle and lower distribution of the paraspinous muscles, but without specific trigger points, without radiation of pain. The patient has good rotational motion of the lumbar spine, both laterally as well as extension and flexion with moderate pain reported with right lateral rotation greater than 10 degrees as well as extension of lumbar spine, and axial loading, with right- sided low back pain much more significantly this is better with forward flexion 45 degrees without significant pain reported. EXTREMITIES: Lower extremities show deep tendon reflexes 2+ in the patellar and tendo calcaneus tendons. Motor exam is 4 on a scale of 5 with right dorsiflexion, extension, quadriceps and hamstring flexion and 5/5 on the left. Peripheral pulses are 1+ posterior tibial. No peripheral edema is noted bilaterally. Lower extremities are warm and dry. SKIN: Shows warm and dry, good turgor. No edema. No sores, rashes or bruising throughout. Procedure: Procedure: Options were discussed with the patient. Patient's old chart was reviewed his current medication regimen updated current review of systems updated today as well. We will preauthorize patient for repeat right side L4-5 and L5-S1 medial branch facet blocks as patient did very well after the first injections with 100% improvement on the left and 75 to 80% improvement on the right initially. Once preauthorized patient return for right side L4-5 and L5-S1 medial branch facet blocks at that time with fluoroscopic guidance Medication Injected: Med Injected: None Condition at Discharge: Condition at Discharge: Condition at discharge is stable. SOFI KELLY MD Mar 24, 2021 12:50
== END | disposition home or self-care (01) ==
LOC: PNCL 11:02
PROVIDERS: ATTEND Anesthesiology
DX: M51.16 Intervertebral disc disorders with radiculopathy, lumbar region (principal); M47.817 Spondylosis without myelopathy or radiculopathy, lumbosacral region; F17.210 Nicotine dependence, cigarettes, uncomplicated; Z79.84 Long term (current) use of oral hypoglycemic drugs; Z79.82 Long term (current) use of aspirin; Z79.899 Other long term (current) drug therapy; Z98.890 Other specified postprocedural states
CPT/HCPCS: 99212; G0463

== ENCOUNTER 2021-04-18 19:11 | Inpatient (IN) | payer OTHER ==
[~2021-04-18] VITALS: Ht 172.7 cm; Wt 115.8 kg
[2021-04-18] MEDS ORDERED: PRAV80TA2 PO (19:50)
[2021-04-18] MEDS ORDERED: CITA10TA4 PO (19:50)
[2021-04-18] MEDS ORDERED: HYDR50TA9 PO (19:50)
[2021-04-18] MEDS ORDERED: PANT40TA77 PO (19:50)
[2021-04-18] MEDS ORDERED: CLON0.3T PO (19:50)
[2021-04-18] MEDS ORDERED: OLME40TA12 PO (19:50)
[2021-04-18 19:55] VITALS: BP 135/70
[2021-04-18] MEDS ORDERED: DEXTROSE 50% 25 GM / 50ML DISP.SYRIN. IV PRN (20:15)
[2021-04-18 21:00] LABS: BASO # 0.1 x10^3/uL (0.0-0.2); BASO % 1 % (0-3); EOS # 0.5 x10^3/uL (0.0-0.7); EOS % 4 % (0-3); HEMATOCRIT 46.8 % (39.0-53.0); HEMOGLOBIN 16.1 g/dL (13.0-17.5); LYMPH # 2.9 x10^3/uL (1.0-4.8); LYMPH % 20 % (24-48); MEAN CORPUSCULAR HEMOGLOBIN 33 pg (25-35); MEAN CORPUSCULAR HGB CONC 35 g/dL (31-37); MEAN CORPUSCULAR VOLUME 95 fL (79-100); MONO # 1.2 x10^3/uL (0.0-1.1); MONO % 8 % (0-9); NEUT # 10.3 x10^3/uL (1.8-7.7); NEUT % 68 % (31-73); PLATELET COUNT 327 x10^3/uL (140-400); RED BLOOD COUNT 4.91 x10^6/uL (4.30-5.70)
[2021-04-18] MEDS ORDERED: INSULIN GLARGINE SYRINGE. SQ ONE (22:00)
[2021-04-18] MEDS ORDERED: INSULIN LISPRO 300 UNITS/3 ML VIAL. SQ ONE (22:00)
[2021-04-18 23:18] VITALS: BP 130/72
[2021-04-19 03:00] VITALS: BP 130/67
[2021-04-19 07:00] VITALS: BP 143/66
--- NOTE | 2021-04-19 08:43 | HP ---
ADMIT DATE: 04/19/2021 ADMISSION HISTORY AND PHYSICAL LOCATION: He is in room #536. CHIEF COMPLAINT AND HISTORY OF PRESENT ILLNESS: This 56-year-old male well known to us, for followup in the office, seen by nurse practitioner on the day of admission. He was quite confused, unsure of what doses of insulin that he was taking including not knowing the difference between which was long-acting and short-acting. He had other mild cognitive deficits ongoing throughout the stay. He had just finished approximately 9 days in the hospital at the [facility] for encephalopathy without any definite answer and have been sent home with a note to return to work. 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 PAST MEDICAL HISTORY: Remarkable for diabetes, coronary artery disease, obstructive sleep apnea, depression, back pain, hypertension. MEDICATIONS: Brought with the patient, listed on computer have been addressed. ALLERGIES: He has no known drug allergies. SOCIAL HISTORY: He has a history of smoking, does not abuse alcohol or drugs. He is single. FAMILY HISTORY: Noncontributory. There is a history in the family of coronary artery disease. REVIEW OF SYSTEMS: As mentioned above. PHYSICAL EXAMINATION: GENERAL: He is a well-developed, well-nourished white male in no acute distress. He is getting ready to try to check his blood sugar with his machine as I come in the room and is unable to open bag of canister strips, will figure out how to use a glucometer and he has used it for years. He is awake and alert, oriented x 3, believes he is 55 years old, instead of 56, but is barely 56. HEAD, EYES, EARS, NOSE AND THROAT: Unremarkable. NECK: Supple, without any thyromegaly. CHEST: Clear to auscultation. HEART: Regular rate and rhythm without S3, S4 or murmur. ABDOMEN: Soft, nontender, without hepatosplenomegaly or mass. EXTREMITIES: Without cyanosis, clubbing, edema. NEUROLOGIC: Nonfocal. He is aware that there are some cognitive deficits ongoing. ASSESSMENT: 1. Encephalopathy of uncertain etiology at this point in time. 2. Coronary artery disease. 3. Hypertension. 4. Diabetes. 5. Sleep apnea. PLAN: We will increase insulin doses gradually as the sugars were close to 500 on admission and ask neurology for help with further elucidating this problem. He does not have an elevated ammonia level. A chem panel was missed on admission, but will be checked. Urinalysis has not been obtained. White count is 15,000 with relatively normal with a slight left shift. ANNY/AVR/AMI DR: ANNY/micha TID: [id number]
[2021-04-19] MEDS: CITALOPRAM 10 MG TABLET. PO SCH (08:53)
[2021-04-19] MEDS: metFORMIN 500 MG TABLET PO SCH (08:53)
[2021-04-19] MEDS: ASPIRIN CHEWABLE 81 MG TABLET. PO SCH (08:53)
[2021-04-19] MEDS: hydroCHLOROthiazide 25 MG TABLET PO SCH (08:53)
[2021-04-19] MEDS: PANTOPRAZOLE 40 MG TABLET.DR. PO SCH (08:54)
[2021-04-19] MEDS: LOSARTAN POTASSIUM 50 MG TABLET. PO SCH (08:54)
--- NOTE | 2021-04-19 09:16 | PDOC2 ---
NEUROLOGY CONSULT Date of Service DOS: DATE: 04/19/21 TIME: 08:53 Reason for Consult Reason for Consult: Encephalopathy Referring Physician Referring Physician: Dr. Langford Source Source: Chart review, Patient History of Present Illness History of Present Illness The patient is a 56-year-old right-handed male admitted for confusion. He says that he has been confused for the past 2 weeks. He was sent from work to [facility] for confusion. With his permission I accessed his [facility] chart. He was admitted there on 04/06. He underwent CT of the head, CT angiogram, MRI of the brain, and lumbar puncture, all normal. B12, thyroid studies, ammonia level, lactic acid, CRP, vitamin B1, Covid, CMV, Lyme, herpes simplex type I and II, influenza a and B, West Nile were all normal. Psychiatry service saw him as did Dr. Aguiar for neurology. 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 Patient says that he binges sometimes but does not drink on a regular basis. He also had poorly controlled diabetes, COPD with hypoxia, and hypertension contributing to the encephalopathy.. He had fluctuating mental status, with periods of agitation requiring Risperdal, but by the time of discharge he was stable. Psychiatry felt that he had improved to the point where he did not need geriatric psychiatry admission. It was recommended for him to pursue further work-up for dementia with his primary care physician. He has had both of his Covid vaccinations. 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 alcohol occasionally but not on a regular basis, smokes tobacco, no street drugs Current Medications Current Medications Current Medications Dextrose (Dextrose 50%-Water Syringe) 12.5 gm PRN Q15MIN PRN IV SEE COMMENTS; Start 04/18/21 at 20:15 Insulin Human Lispro (HumaLOG) 9 units 1X ONCE SQ Last administered on 04/18/21at 22:04; Start 04/18/21 at 22:00; Stop 04/18/21 at 22:01; Status DC Insulin Glargine (Lantus Syringe) 20 unit 1X ONCE SQ Last administered on 04/18/21at 22:05; Start 04/18/21 at 22:00; Stop 04/18/21 at 22:01; Status DC Aspirin (Aspirin Chewable) 81 mg DAILY PO ; Start 04/19/21 at 09:00 Citalopram Hydrobromide (CeleXA) 10 mg DAILY PO ; Start 04/19/21 at 09:00 Clonidine HCl (Catapres) 0.3 mg BID PO ; Start 04/19/21 at 09:00 Acetaminophen/ Hydrocodone Bitart (Lortab 7.5/325) 1 tab PRN Q6HRS PRN PO MODERATE PAIN 4-6; Start 04/19/21 at 02:45 Metformin HCl (Glucophage) 500 mg DAILY PO ; Start 04/19/21 at 09:00 Pantoprazole Sodium (Protonix) 40 mg DAILYAC PO ; Start 04/19/21 at 07:30 Hydrochlorothiazide (Hydrodiuril) 25 mg DAILY PO ; Start 04/19/21 at 09:00 Losartan Potassium (Cozaar) 100 mg DAILY PO ; Start 04/19/21 at 09:00 Atorvastatin Calcium (Lipitor) 20 mg QHS PO ; Start 04/19/21 at 21:00 Insulin Glargine (Lantus Syringe) 50 unit QHS SQ ; Start 04/19/21 at 21:00 Active Scripts Active Endocet 5-325 Tablet (Oxycodone Hcl/Acetaminophen) 1 Each Tablet 1 Each PO Q6HRS Reported Benicar (Olmesartan Medoxomil) 40 Mg Tablet 1 Tab PO DAILY 30 Days Pravastatin Sodium 80 Mg Tablet 1 Tab PO DAILY Citalopram Hbr (Citalopram Hydrobromide) 10 Mg Tablet 1 Tab PO DAILY Pantoprazole Sodium (Pantoprazole Sodium) 40 Mg Tablet.dr 40 Mg PO DAILYAC Hydrochlorothiazide Tablet (Hydrochlorothiazide) 50 Mg Tablet 25 Mg PO DAILY Clonidine Hcl 0.3 Mg Tablet 1 Tab PO BID Irbesartan 300 Mg Tablet 1 Tab PO DAILY Clonidine Hcl 0.2 Mg Tablet 1 Tab PO BID Aspirin 81 Mg Tab.chew 1 Tab PO DAILY Levemir (Insulin Detemir) 100 Unit/1 Ml Vial 1 Unit SQ HS Hydrocodone-Apap 7.5-325 (Hydrocodone Bit/Acetaminophen) 1 Tab Tablet 1 Tab PO PRN Q6HRS PRN Hydrochlorothiazide Tablet (Hydrochlorothiazide) 50 Mg Tablet 50 Mg PO DAILY Amlodipine Besylate 5 Mg Tablet 5 Mg PO DAILY Metformin Hcl 500 Mg Tablet 500 Mg PO DAILY Allergies Allergies: Coded Allergies: No Known Allergies (Verified Allergy, Unknown, 07/16/18) ROS Review of System Negative for fever, chills, weight loss, shortness of breath, chest pain, indigestion, hematochezia, melena, and dysuria. Full 14-point review of systems is negative. Physical Exam Physical Examination General: Well-developed, well-nourished white male in no acute distress HEENT: Normocephalic andatraumatic. Temporal arteriespulsatile and nontender. Neck: Supple without bruit, no meningismus Musculoskeletal: Stability:see neurologic. Gait exam:see neurologic. Tone:see ne urologic.Strength:see neurologic. Neurological: Mental Status:orientation, memory, attention span/concentration, language, fund of knowledge: He knows location and date, names, repeats, comprehends well, but has no insight into what is been going on with him for the past few weeks. Cranial Nerves:Pupils equal and reactive to light, extraocular movements areintact, visual minaya are full to confrontation. Facial sensation is normal. There is no facial asymmetry. Vestibulo-ocular reflex is intact. Palate elevates and tongue protrudes in midline. All other cranial related problems are negative except as mentioned before.Reflexes:1+ and symmetric with flexor plantar responses. Motor:5/5 strength with normal tone and bulk. Coordination:Finger- nose finger and [id number]-[id number] testing are normal. Rapid alternating movements and fine finger movements are intact. Gait:Normal, including tandem. Sensory:Stocking loss. Vitals VITALS Vital Signs Date Time Temp Pulse Resp B/P (MAP) Pulse Ox O2 Delivery O2 Flow Rate FiO2 04/19/21 03:00 97.8 73 18 130/67 (88) 96 97.8 04/18/21 23:18 Room Air Labs Labs Laboratory Tests Test 04/18/21 20:51 04/18/21 20:55 04/18/21 22:11 04/19/21 08:15 Glucose (Fingerstick) 410 mg/dL (70-99) 362 mg/dL (70-99) 256 mg/dL (70-99) White Blood Count 15.0 x10^3/uL (4.0-11.0) Red Blood Count 4.91 x10^6/uL (4.30-5.70) Hemoglobin 16.1 g/dL (13.0-17.5) Hematocrit 46.8 % (39.0-53.0) Mean Corpuscular Volume 95 fL (79-100) Mean Corpuscular Hemoglobin 33 pg (25-35) Mean Corpuscular Hemoglobin Concent 35 g/dL (31-37) Red Cell Distribution Width 14.0 % (11.5-14.5) Platelet Count 327 x10^3/uL (140-400) Neutrophils (%) (Auto) 68 % (31-73) Lymphocytes (%) (Auto) 20 % (24-48) Monocytes (%) (Auto) 8 % (0-9) Eosinophils (%) (Auto) 4 % (0-3) Basophils (%) (Auto) 1 % (0-3) Neutrophils # (Auto) 10.3 x10^3/uL (1.8-7.7) Lymphocytes # (Auto) 2.9 x10^3/uL (1.0-4.8) Monocytes # (Auto) 1.2 x10^3/uL (0.0-1.1) Eosinophils # (Auto) 0.5 x10^3/uL (0.0-0.7) Basophils # (Auto) 0.1 x10^3/uL (0.0-0.2) Ammonia < 10 mcmol/L (11-34) Laboratory Tests Test 04/18/21 20:51 04/18/21 20:55 04/18/21 22:11 04/19/21 08:15 Glucose (Fingerstick) 410 mg/dL (70-99) 362 mg/dL (70-99) 256 mg/dL (70-99) White Blood Count 15.0 x10^3/uL (4.0-11.0) Red Blood Count 4.91 x10^6/uL (4.30-5.70) Hemoglobin 16.1 g/dL (13.0-17.5) Hematocrit 46.8 % (39.0-53.0) Mean Corpuscular Volume 95 fL (79-100) Mean Corpuscular Hemoglobin 33 pg (25-35) Mean Corpuscular Hemoglobin Concent 35 g/dL (31-37) Red Cell Distribution Width 14.0 % (11.5-14.5) Platelet Count 327 x10^3/uL (140-400) Neutrophils (%) (Auto) 68 % (31-73) Lymphocytes (%) (Auto) 20 % (24-48) Monocytes (%) (Auto) 8 % (0-9) Eosinophils (%) (Auto) 4 % (0-3) Basophils (%) (Auto) 1 % (0-3) Neutrophils # (Auto) 10.3 x10^3/uL (1.8-7.7) Lymphocytes # (Auto) 2.9 x10^3/uL (1.0-4.8) Monocytes # (Auto) 1.2 x10^3/uL (0.0-1.1) Eosinophils # (Auto) 0.5 x10^3/uL (0.0-0.7) Basophils # (Auto) 0.1 x10^3/uL (0.0-0.2) Ammonia < 10 mcmol/L (11-34) Assessment/Plan Assessment/Plan Impression: Encephalopathy, acute issue is hyperglycemia and continued poorly controlled diabetes. He also has known COPD and sleep apnea Dementia, the question is whether this is due to alcoholism. 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 He has had an extensive work-up at [facility]. Diabetic neuropathy Recommendations: No need to repeat [facility] work-up Outpatient neuropsychiatric testing which of course is not available at this facility I will have speech therapy check him out for cognitive issues, though. Consult psychiatric assessment team Treatment of diabetes I told the patient to abstain from alcohol Oral multivitamin We will consider adding on donepezil and memantine depending on results of outpatient neuropsychological testing. Thank you for letting me help with the patient's care. JOHNATHAN TIERNEY MD Apr 19, 2021 09:16
[2021-04-19 11:00] VITALS: BP 149/81
--- NOTE | 2021-04-19 11:42 | NUR ---
WILIAN following. Discussed with RN, pt from home alone, room air, ada diet. PT/OT ordered. PAT consulted per chart. Pt was recently seen by Dr. Wild at [facility] and had a full neuro work up which was negative. Possibly could be as a result of pt years of heavy drinking. WILIAN will continue to follow. Addendum: 04/19/21 at 1601 by BUDDY CEDENO Brianna CLAROS) met with pt, pt was provided resources, Brianna does not think this confusion is due to history of drinking. Pt cleared by [facility] team.
[2021-04-19 12:01] LABS: CALCIUM 8.8 mg/dL (8.5-10.1); CREATININE 0.8 mg/dL (0.7-1.3); GFR 100.4; POTASSIUM 4.1 mmol/L (3.5-5.1)
[2021-04-19 12:13] LABS: ALBUMIN 3.3 g/dL (3.4-5.0); TOTAL BILIRUBIN 0.3 mg/dL (0.2-1.0); TOTAL PROTEIN 6.5 g/dL (6.4-8.2)
[2021-04-19] MEDS: PRENATAL MULTIVITAMIN TABLET. PO SCH (13:17)
[2021-04-19] MEDS: cloNIDine HCL 0.3 MG TABLET PO SCH ×2 (13:17→21:23)
[2021-04-19] MEDS: INSULIN LISPRO 300 UNITS/3 ML VIAL. SQ SCH ×2 (13:46→17:49)
[2021-04-19 15:00] VITALS: BP 94/73
[2021-04-19] MEDS: HYDROcodone/APAP 7.5/325MG 1 TAB TABLET PO PRN (16:34)
[2021-04-19 19:00] VITALS: BP 125/59
[2021-04-19] MEDS ORDERED: INSULIN GLARGINE SYRINGE. SQ SCH (21:00)
[2021-04-19] MEDS ORDERED: ATORVASTATIN CALCIUM 20 MG TABLET PO SCH (21:00)
[2021-04-19 23:00] VITALS: BP 117/72
[2021-04-20 03:15] VITALS: BP 115/62
[2021-04-20 06:14] LABS: BILIRUBIN,URINE NEGATIVE (NEG); CLARITY,URINE CLEAR; COLOR,URINE YELLOW; NITRITE,URINE NEGATIVE (NEG); PH,URINE 5.5 (<5.0-8.0); PROTEIN,URINE NEGATIVE (NEG-TRACE); UROBILINOGEN,URINE 0.2 mg/dL (0.2 mg/dL)
[2021-04-20] MEDS: HYDROcodone/APAP 7.5/325MG 1 TAB TABLET PO PRN (06:16)
[2021-04-20 07:00] VITALS: BP 119/71
[2021-04-20 07:09] LABS: BACTERIA,URINE 0 /HPF (0-FEW); RBC,URINE RARE /HPF (0-2); WBC,URINE OCC /HPF (0-4)
[2021-04-20 08:13] VITALS: BP 119/71
[2021-04-20] MEDS: LOSARTAN POTASSIUM 50 MG TABLET. PO SCH (08:13)
[2021-04-20] MEDS: cloNIDine HCL 0.3 MG TABLET PO SCH (08:13)
[2021-04-20] MEDS: CITALOPRAM 10 MG TABLET. PO SCH (08:13)
[2021-04-20] MEDS: hydroCHLOROthiazide 25 MG TABLET PO SCH (08:13)
[2021-04-20] MEDS: ASPIRIN CHEWABLE 81 MG TABLET. PO SCH (08:14)
[2021-04-20] MEDS: PRENATAL MULTIVITAMIN TABLET. PO SCH (08:14)
[2021-04-20] MEDS: metFORMIN 500 MG TABLET PO SCH (08:14)
[2021-04-20] MEDS: PANTOPRAZOLE 40 MG TABLET.DR. PO SCH (08:14)
[2021-04-20] MEDS: INSULIN LISPRO 300 UNITS/3 ML VIAL. SQ SCH (08:27)
--- NOTE | 2021-04-20 09:16 | PN ---
DATE: 04/20/2021 DAILY PROGRESS NOTE LOCATION: He is in room 536. SUBJECTIVE: This 56-year-old male remains hospitalized with confusion/encephalopathy. 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 He claims to drink every now and then, and not in large amounts for quite some time. He is definitely remains confused this morning on talking to him about his insulin and I have instructed him he needs to find somebody to stay with him at home, to be able to go home at this point in time until things clear or he will need placement somewhere where someone can take care of him. He voices understanding. Nurse is present. We will see if that has followed through with the day or not. OBJECTIVE: VITAL SIGNS: Stable. He is afebrile. CHEST: Clear. HEART: Regular. ABDOMEN: Benign. NEUROLOGIC: Nonfocal. LABORATORY DATA: This morning, sugars 220. IMPRESSION: 1. Encephalopathy/confusion. 2. Diabetes, poor control. PLAN: As outlined above. RAY DR: Anu TID: [id number]
--- NOTE | 2021-04-20 10:44 | NUR ---
Patient signed himself out AMA at 1015. Patient educated on reasons to stay. Dr. Langford notified of patient decision. Nursing supervisor mixing notified- cab pass and cab ride home on patient for safe discharge home. Daughter of patient also notified.
--- NOTE | 2021-04-20 11:28 | PDOC ---
Provider Note Date of Service: DATE: 04/20/21 TIME: 11:26 Provider Note Patient left AMA, discussed with dtr. Reed, requests that we go ahead with the neuropsych consult. Patient has dementia, also encephalopathy too due to the high sugars. Justifications for Admission Other Justification JOHNATHAN TIERNEY MD Apr 20, 2021 11:28
[2021-05-09] MEDS ORDERED: TRAM50TA PO (12:43)
== END 2021-04-20 10:20 | disposition left against medical advice (07) | DRG 637 ==
LOC: 5 NORTH 19:11
PROVIDERS: ADMIT Family Medicine; ATTEND Family Medicine
DX: E11.65 Type 2 diabetes mellitus with hyperglycemia (principal); G93.41 Metabolic encephalopathy; B00.9 Herpesviral infection, unspecified; E11.40 Type 2 diabetes mellitus with diabetic neuropathy, unspecified; E78.5 Hyperlipidemia, unspecified; F03.90 Unspecified dementia, unspecified severity, without behavioral disturbance, psychotic disturbance, mood disturbance, and anxiety; G47.30 Sleep apnea, unspecified; I10 Essential (primary) hypertension; I25.10 Atherosclerotic heart disease of native coronary artery without angina pectoris; J44.9 Chronic obstructive pulmonary disease, unspecified; R09.02 Hypoxemia; Z82.49 Family history of ischemic heart disease and other diseases of the circulatory system; Z83.3 Family history of diabetes mellitus; Z87.891 Personal history of nicotine dependence; F32.9 Major depressive disorder, single episode, unspecified; G47.33 Obstructive sleep apnea (adult) (pediatric); Z53.29 Procedure and treatment not carried out because of patient's decision for other reasons
CPT/HCPCS: 36415; 80053; 81001; 82140; 82962; 85025; J1815; 92523-GN; 97110-GP; 97116-GP; 97535-GO; G0378

== ENCOUNTER → 2021-06-02 | Outpatient (CLI) | payer OTHER ==
[~2021-06-02] MED LIST changes: +CITA10TA5 PO; +CLON0.3T PO; +OLME40TA12 PO; +PANT40TA77 PO; +PRAV80TA2 PO; +TRAM50TA PO
--- NOTE | 2021-06-02 12:17 | RAD ---
EXAM: 1. Left lower artery arterial Doppler. 2. Left lower extremity venous reflux study. HISTORY: Left lower extremity pain/swelling. Nonhealing wound. COMPARISON: None. FINDINGS: Grayscale and Doppler analysis of the left lower surely arterial system was performed. There are triphasic waveforms throughout. There are no elevated peak systolic velocities. The dorsali s pedis artery is patent. Grayscale and Doppler analysis of the left lower extremity greater and lesser saphenous systems was p erformed with graded compression and augmentation. There is no significant greater or lesser saphenous reflux. The left greater saphenous vein measures 5 mm proximally and distally. The lesser saphenous vein measures 4 mm. IMPRESSION: 1. No evidence of hemodynamically significant left lower surely arterial stenosis. 2. No significant greater or lesser saphenous reflux on the left. Electronically signed by: Maribel De La Cruz MD (06/02/2021 12:15 PM) [id number]
== END ==
LOC: US 11:13
PROVIDERS: ATTEND Emergency Medicine Undersea and Hyperbaric Medicine
DX: L97.929 Non-pressure chronic ulcer of unspecified part of left lower leg with unspecified severity (principal)
CPT/HCPCS: 93926; 93971

== ENCOUNTER 2021-07-28 09:43 | Emergency (ER) | payer SELFPAY ==
[~2021-07-28] VITALS: Ht 175.3 cm; Wt 139.0 kg
--- NOTE | 2021-07-28 09:51 | PHYS DOC ---
Past Medical History Past Medical History: Diabetes-Type II, High Cholesterol, Hypertension Past Surgical History: Tonsillectomy, Other Additional Past Surgical Histo: bilat rotator cuff surgery, bicep tear repair, ear tubes Smoking Status: Current Every Day Smoker Alcohol Use: Occasionally Drug Use: None General Adult EDM: Chief Complaint: CHEST PAIN HPI: HPI: Patient is a 56-year-old male presenting via EMS for right-sided chest wall pain. Onset was this morning shortly after waking up without any obvious inciting event, trauma, ingestion, sick contact or recent travel. Pressing on right side of chest wall makes better, laying on it and deep breaths in and out make worse. Reports pain is focal without radiation. Timing of symptoms has been constant since onset. Denies any symptoms like this in the past. Admits he has extensive comorbid history concerning for type 2 diabetes on insulin, high blood pressure and high cholesterol. No personal history of any cardiopulmonary abnormalities such as heart attack, CAD, pulmonary embolism etc. He is not on any anticoagulants or other blood thinners. Admits to tobacco use daily, admits recreational alcohol and did disclose he drank half a pint of [place] last night, no current or history of illicit drug abuse Review of Systems: Review of Systems: Fourteen body systems of review of systems have been reviewed. See HPI for pertinent positives and negative responses, other leavitt all other systems are negative, non-pertinent or non-contributory Heart Score: C/O Chest Pain: Yes HEART Score for Chest Pain: HEART Score for Chest Pain Response (Comments) Value History Slighlty/Non-Suspicious 0 ECG Normal 0 Age >45 - < 65 1 Risk Factors >3 Risk Factors or Hx CAD 2 Total 3 Risk Factors: Risk Factors: DM, Current or recent (<one month) smoker, HTN, HLP, family history of CAD, obesity. Risk Scores: Score 0 - 3: 2.5% MACE over next 6 weeks - Discharge Home Score 4 - 6: 20.3% MACE over next 6 weeks - Admit for Clinical Observation Score 7 - 10: 72.7% MACE over next 6 weeks - Early Invasive Strategies Allergies: Allergies: Allergies Coded Allergies Type Severity Reaction Last Updated Verified No Known Allergies Allergy Unknown 07/16/18 Yes Physical Exam: PE: Constitutional: Well developed, well nourished, no acute distress, non-toxic appearance. HENT: Normocephalic, atraumatic, bilateral external ears normal, oropharynx moist, no oral exudates, nose normal. Eyes: PERRLA, EOMI, conjunctiva normal, no discharge. Neck: Normal range of motion, no tenderness, supple, no stridor. Cardiovascular: Heart rate regular, sinus rhythm, no murmurs rubs or gallops. Right lateral rib soldering machine tender to palpation without any visual and/or palpable abnormalities Lungs & Thorax: Bilateral breath sounds clear to auscultation Abdomen: Bowel sounds normal, soft and protuberant, no tenderness, no masses, no pulsatile masses. Nonsurgical abdomen, no peritoneal signs Skin: Warm, dry, no erythema, no rash. Back: No tenderness, no CVA tenderness. Extremities: No tenderness, no cyanosis, no clubbing, ROM intact, no edema. Neurologic: Alert and oriented X 3, grossly normal motor & sensory function, no focal deficits noted. Psychologic: Affect normal, judgement normal, mood normal. Current Patient Data: Labs: Laboratory Tests Test 07/28/21 10:03 White Blood Count 13.2 x10^3/uL Red Blood Count 5.34 x10^6/uL Hemoglobin 16.6 g/dL Hematocrit 50.2 % Mean Corpuscular Volume 94 fL Mean Corpuscular Hemoglobin 31 pg Mean Corpuscular Hemoglobin Concent 33 g/dL Red Cell Distribution Width 14.2 % Platelet Count 288 x10^3/uL Neutrophils (%) (Auto) 78 % Lymphocytes (%) (Auto) 13 % Monocytes (%) (Auto) 5 % Eosinophils (%) (Auto) 3 % Basophils (%) (Auto) 1 % Neutrophils # (Auto) 10.4 x10^3/uL Lymphocytes # (Auto) 1.7 x10^3/uL Monocytes # (Auto) 0.7 x10^3/uL Eosinophils # (Auto) 0.3 x10^3/uL Basophils # (Auto) 0.1 x10^3/uL Sodium Level 137 mmol/L Potassium Level 4.0 mmol/L Chloride Level 99 mmol/L Carbon Dioxide Level 28 mmol/L Anion Gap 10 Blood Urea Nitrogen 12 mg/dL Creatinine 0.6 mg/dL Estimated GFR (Cockcroft-Gault) 139.9 BUN/Creatinine Ratio 20 Glucose Level 200 mg/dL Calcium Level 8.3 mg/dL Total Bilirubin 0.4 mg/dL Aspartate Amino Transf (AST/SGOT) 16 U/L Alanine Aminotransferase (ALT/SGPT) 35 U/L Alkaline Phosphatase 77 U/L Troponin I High Sensitivity 25 ng/L KY-Hbf-P-Type Natriuretic Peptide 233 pg/mL Total Protein 6.4 g/dL Albumin 3.3 g/dL Albumin/Globulin Ratio 1.1 Lipase 67 U/L Current Medications Medications (Trade) Dose Ordered Sig/Evon Route PRN Reason Start Time Stop Time Status Last Admin Dose Admin Aspirin (Aspirin Chewable) 162 mg 1X ONCE PO 07/28/21 10:00 07/28/21 10:01 DC 07/28/21 10:46 Vital Signs: Vital Signs Date Time Temp Pulse Resp B/P (MAP) Pulse Ox O2 Delivery O2 Flow Rate FiO2 07/28/21 09:54 98.5 71 19 154/74 (100) 96 Room Air 98.5 Vital Signs Date Time Temp Pulse Resp B/P (MAP) Pulse Ox O2 Delivery O2 Flow Rate FiO2 07/28/21 09:54 98.5 71 19 154/74 (100) 96 Room Air 98.5 EKG: EKG: EKG ordered and interpreted by myself at 0959 hrs. as sinus rhythm at 71 bpm, QRS 124 and QTC 474 otherwise unremarkable intervals, left axis deviation, T wave inversion noted in lead aVR, V1 and V2 otherwise no acute ischemic findings, no STEMI Radiology/Procedures: Radiology/Procedures: XR CHEST 2V CLINICAL INDICATIONS: Reason: right chest wall pain / Spl. Instructions: / History: COMPARISON: October 29, 2015. Findings: Bilateral perihilar lung infiltrates are seen which may represent pulmonary edema. No pleural effusion or pneumothorax is seen. The heart size is mildly prominent but unchanged from the prior study. There is cephalization of pulmonary flow. IMPRESSION: Mild CHF. Electronically signed by: Isaac Garcia MD (07/28/2021 10:57 AM) [id number] ///////////////////// Exam: Right Upper Quadrant Ultrasound 07/28/2021 11:27 AM Indication: Reason: ruq pain / Spl. Instructions: / History: Technique: Multiple realtime grayscale sonographic images were obtained over the abdomen. Static images were submitted for interpretation. Comparisons: None Findings: The pancreas is poorly visualized. Portions of the liver obscured. Liver is enlarged measuring approximately 24 cm longitudinally. The liver demonstrates diffuse increase in echogenicity suggesting hepatic steatosis. No intrahepatic biliary dilatation is seen. Common bile duct is nondilated at 2 mm. Multiple shadowing stones noted in the gallbladder. No gallbladder wall thickening or pericholecystic fluid is seen. Right kidney is unremarkable in appearance. Right kidney measures 14 cm longitudinally. No ascites is identified. IMPRESSION: 1. Cholelithiasis without evidence of cholecystitis 2. Hepatomegaly and probable hepatic steatosis Electronically signed by: Luis Alberto Muñoz MD (07/28/2021 12:00 PM) [id number] Course & Med Decision Making: Course & Med Decision Making ABCs unremarkable HPI physical exam and comprehensive ER work-up obtained nonconcerning for any emergent or surgical issues Dragkatie Disclaimer: Sudarshan Disclaimer: This electronic medical record was generated, in whole or in part, using a voice recognition dictation system. Departure Departure Impression: Primary Impression: Right-sided chest wall pain Disposition: HOME / SELF CARE / HOMELESS Condition: STABLE Additional Instructions: You were seen for right-sided chest wall pain. Your workup did not show any acute abnormalities today, but does not indicate that you do not have underlying cardiovascular disease. You do need to follow up with your primary doctor and potentially a party plan sales unit advisor for further evaluation and treatment. In addition, it is advised you follow-up with an outpatient surgeon and/or GI specialist to further evaluate your gallbladder given your concern that this needs to be removed. You should return to the ED if you develop worsening chest pain, shortness of breath, fever, abnormal sweating, leg swelling, or any other new or concerning symptoms. KRUNAL COOK DO Jul 28, 2021 09:51
[2021-07-28] MEDS ORDERED: ASPIRIN CHEWABLE 81 MG TABLET. PO ONE (10:00)
[2021-07-28 10:13] LABS: BASO # 0.1 x10^3/uL (0.0-0.2); BASO % 1 % (0-3); EOS # 0.3 x10^3/uL (0.0-0.7); EOS % 3 % (0-3); HEMATOCRIT 50.2 % (39.0-53.0); HEMOGLOBIN 16.6 g/dL (13.0-17.5); LYMPH # 1.7 x10^3/uL (1.0-4.8); LYMPH % 13 % (24-48); MEAN CORPUSCULAR HEMOGLOBIN 31 pg (25-35); MEAN CORPUSCULAR HGB CONC 33 g/dL (31-37); MEAN CORPUSCULAR VOLUME 94 fL (79-100); MONO # 0.7 x10^3/uL (0.0-1.1); MONO % 5 % (0-9); NEUT # 10.4 x10^3/uL (1.8-7.7); NEUT % 78 % (31-73); PLATELET COUNT 288 x10^3/uL (140-400); RED BLOOD COUNT 5.34 x10^6/uL (4.30-5.70); RED CELL DISTRIBUTION WIDTH 14.2 % (11.5-14.5); WHITE BLOOD COUNT 13.2 x10^3/uL (4.0-11.0)
[2021-07-28 10:42] LABS: ALBUMIN 3.3 g/dL (3.4-5.0); ALBUMIN/GLOBULIN RATIO 1.1 (1.0-1.7); CALCIUM 8.3 mg/dL (8.5-10.1); CREATININE 0.6 mg/dL (0.7-1.3); TOTAL PROTEIN 6.4 g/dL (6.4-8.2)
[2021-07-28 10:43] LABS: GFR 139.9; TOTAL BILIRUBIN 0.4 mg/dL (0.2-1.0)
--- NOTE | 2021-07-28 10:59 | RAD ---
XR CHEST 2V CLINICAL INDICATIONS: Reason: right chest wall pain / Spl. Instructions: / History: COMPARISON: October 29, 2015. Findings: Bilateral perihilar lung infiltrates are seen which may represent pulmonary edema. No pleur al effusion or pneumothorax is seen. The heart size is mildly prominent but unchanged from the prior study. There is cephalization of pulmonary flow. IMPRESSION: Mild CHF. Electronically signed by: Isaac Garcia MD (07/28/2021 10:57 AM) [id number]
[2021-07-28 12:02] VITALS: BP 171/87
--- NOTE | 2021-07-28 12:02 | RAD ---
Exam: Right Upper Quadrant Ultrasound 07/28/2021 11:27 AM Indication: Reason: ruq pain / Spl. Instructions: / History: Technique: Multiple realtime grayscale sonographic images were obtained over the abdomen. Static imag es were submitted for interpretation. Comparisons: None Findings: The pancreas is poorly visualized. Portions of the liver obscured. Liver is enlarged measuring approx imately 24 cm longitudinally. The liver demonstrates diffuse increase in echogenicity suggesting hepa tic steatosis. No intrahepatic biliary dilatation is seen. Common bile duct is nondilated at 2 mm. Multiple shadowing stones noted in the gallbladder. No gallbladder wall thickening or pericholecystic fluid is seen. Right kidney is unremarkable in appearance. Right kidney measures 14 cm longitudinally. No ascites is identified. IMPRESSION: 1. Cholelithiasis without evidence of cholecystitis 2. Hepatomegaly and probable hepatic steatosis Electronically signed by: Luis Alberto Muñoz MD (07/28/2021 12:00 PM) [id number]
[2021-07-28] MEDS ORDERED: MORPHINE SULFATE 4 MG/ML INJ. IVP ONE (12:30)
[2021-07-28] MEDS ORDERED: HYDR-2761 PO (12:34)
--- NOTE | 2021-07-29 04:47 | EKG ---
[facility] [address] [place] [address] Test Date: 2021-07-28 Test Time: 09:52:24 Pat Name: ASHLEY ANTHONY Department: Room: Gender: M Pipeline Welder: : 1965 Requested By: KRUNAL COOK Order Number: [id number] Reading MD: Measurements Intervals [place] Rate: 71 P: 64 AR: 168 QRS: -71 QRSD: 124 T: 20 QT: 436 QTc: 474 Interpretive Statements SINUS RHYTHM ABNORMAL LEFT AXIS DEVIATION S1,S2,S3 PATTERN LEFT ANTERIOR FASCICULAR BLOCK RIGHT BUNDLE BRANCH BLOCK BIFASCICULAR BLOCK ABNORMAL ECG RI6.02 No previous ECG available for comparison
== END 2021-07-28 13:24 | disposition home or self-care (01) ==
LOC: ER 09:43
DX: R07.89 Other chest pain (principal); E11.9 Type 2 diabetes mellitus without complications; E78.00 Pure hypercholesterolemia, unspecified; I10 Essential (primary) hypertension; F17.200 Nicotine dependence, unspecified, uncomplicated
CPT/HCPCS: 36415; 71046; 76705; 80053; 83690; 83880; 84484; 85025; 93005; 96374; 99285; J2270

== ENCOUNTER → 2022-01-02 | Outpatient (CLI) | payer BC ==
[~2022-01-02] MED LIST changes: +HYDR-2761 PO
--- NOTE | 2022-01-03 09:41 | RAD ---
EXAMINATION: Upper and lower extremity pressure measurements of ankle/brachial index. INDICATION: 56 years Male Reason: NON HEALING WOUNDS B/L LOWER EXTREMITIES FINDINGS: The ankle/brachial index on the right side is 1.2, and on the left is 1.3. IMPRESSION: ABIs at the upper limits of normal. There could be an element of vascular calcifications falsely elevating the ankle pressures. Electronically signed by: Kirill Molina MD (01/03/2022 9:39 AM) [id number]
--- NOTE | 2022-01-03 09:46 | RAD ---
Bilateral lower extremity arterial ultrasound History: : 56 years Male Reason: NON HEALING WOUNDS B/L LOWER EXTREMITIES / Findings: Multiple grayscale, color, and duplex spectral analysis sonographic images were acquired of the lower extremity arteries. COMPARISON: June 02, 2021. FINDINGS: Grayscale evaluation of the femoropopliteal segments demonstrate no significant atherosclerotic plaqu e. Color Doppler demonstrate patent arterial segments from the SAFETY LEAD to dorsalis pedis and posterior tibia l arteries. The peroneal arteries however are not visualized, possibly occluded. Waveforms: Right LE: Triphasic to the FORENSIC SCIENCE TECHNICIAN and LILIAM. There are monophasic waveforms in the dorsalis pedis arteries . Left LE: Triphasic to the popliteal artery and monophasic in the posterior tibial and anterior tibial arteries. Velocities: Right leg: Within normal limits left leg: Within normal limits Impression: Flow is not seen in the peroneal arteries possibly occluded. No significant arterial disease in the f emoropopliteal segments. Electronically signed by: Kirill Molina MD (01/03/2022 9:44 AM) [id number]
== END ==
LOC: US 14:34
PROVIDERS: ATTEND Emergency Medicine Undersea and Hyperbaric Medicine
DX: L97.928 Non-pressure chronic ulcer of unspecified part of left lower leg with other specified severity (principal); L97.918 Non-pressure chronic ulcer of unspecified part of right lower leg with other specified severity
CPT/HCPCS: 93922; 93925

== ENCOUNTER → 2022-01-04 | Outpatient (CLI) | payer BC ==
--- NOTE | 2022-01-04 09:38 | RAD ---
EXAM: Bilateral lower extremity venous Doppler for venous mapping of the superficial veins. INDICATION: : 56 years Male Reason: NON HEALING WOUNDS B/L evaluate for reflux FINDINGS: Evaluation of direction of flow in the greater and small saphenous veins demonstrate no significant r eflux. Right leg: The great saphenous vein is patent. Measurements in mm are: At the origin: 9 GSV proximal thigh: 6 The small saphenous vein is patent. Measurements in mm are: SSV proximal calf: 2.5 Left leg: The great saphenous vein is patent. Measurements in mm are: At the origin: 7 The small saphenous vein is patent. Measurements in mm are: SSV at proximal calf: 4.1 On the right side there is a health center manager identified dilated measuring 2.6 mm in caliber located at 17 cm above the ankle, 3 cm posterior to the tibia and demonstrate abnormal direction of flow from deep to superficial system. On the left side there is a health center manager measuring 2.7 cm in caliber located to 11 cm above the ankle a nd 3 cm posterior to the tibia. Flow towards the deep system is demonstrated with color Doppler. IMPRESSION: No significant reflux is seen in the great and the small saphenous veins. There are dilat ed perforators in the calves with reversal of flow on the right side. Electronically signed by: Kirill Molina MD (01/04/2022 9:36 AM) [id number]
== END ==
LOC: US 08:23
PROVIDERS: ATTEND Emergency Medicine Undersea and Hyperbaric Medicine
DX: L97.221 Non-pressure chronic ulcer of left calf limited to breakdown of skin (principal); L97.211 Non-pressure chronic ulcer of right calf limited to breakdown of skin
CPT/HCPCS: 93970